=== PATIENT | female | born 1960 | race African-American/Black ===

== ENCOUNTER 2019-01-27 15:17 | Emergency (ER) | payer MEDICARE, MEDICAID ==
[~2019-01-27] VITALS: Ht 157.5 cm; Wt 88.0 kg
[2019-01-27] MEDS ORDERED: IBUPROFEN 600MG TABLET PO ONE (18:30)
[2019-01-27] MEDS ORDERED: ACETAMINOPHEN 325MG TABLET PO ONE (18:45)
[2019-01-27 19:00] VITALS: BP 160/66
[2019-01-27] MEDS ORDERED: HYDROCODONE/ACETAMINOPHEN 5/325MG TABLET PO ONE (19:00)
[2019-01-27] MEDS ORDERED: KETOROLAC 60MG/2ML VIAL IM ONE (19:00)
== END 2019-01-27 19:24 | disposition home or self-care (01) ==
LOC: ER 15:17
DX: G50.0 Trigeminal neuralgia (principal); F17.200 Nicotine dependence, unspecified, uncomplicated; Z88.0 Allergy status to penicillin
CPT/HCPCS: 96372; 99283; J1885